=== PATIENT | male | born 1935 | race Caucasian/White ===

== ENCOUNTER 2019-09-14 23:07 | Emergency (ER) | payer MEDICARE ==
[2019-09-14] MEDS ORDERED: Lidocaine-Prilocaine 2.5% Cream 5 GM TUBE ONE (23:49)
[2019-09-14] MEDS ORDERED: Adacel (T-DAP) 0.5 ML SYRINGE ONE (23:49)
--- NOTE | 2019-09-15 07:39 | RAD ---
EXAM: Left elbow 4 views: HISTORY: Injury COMPARISON: None FINDINGS: Soft tissue swelling over the ulnar olecranon lesion. 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 No acute fracture or dislocation or other significant acute osseous abnormality. IMPRESSION: No significant acute process.
== END 2019-09-15 01:04 | disposition home or self-care (01) ==
LOC: MADERS 23:07
DX: S51.012A Laceration without foreign body of left elbow, initial encounter (principal); I25.10 Atherosclerotic heart disease of native coronary artery without angina pectoris; K21.9 Gastro-esophageal reflux disease without esophagitis; E78.5 Hyperlipidemia, unspecified; E78.00 Pure hypercholesterolemia, unspecified; I10 Essential (primary) hypertension; N40.0 Benign prostatic hyperplasia without lower urinary tract symptoms; F41.9 Anxiety disorder, unspecified; Z79.899 Other long term (current) drug therapy; W01.0XXA Fall on same level from slipping, tripping and stumbling without subsequent striking against object, initial encounter
CPT/HCPCS: 12002; 90471; 90715